=== PATIENT | female | born 1960 | race Caucasian/White ===

== ENCOUNTER 2017-03-04 10:02 | Day surgery (SDC) | END 2017-03-04 15:40 | disposition home or self-care (01) ==

== ENCOUNTER 2018-06-30 16:27 | Emergency (ER) | payer OTHER ==
[~2018-06-30] VITALS: Ht 162.6 cm; Wt 88.4 kg
[~2018-06-30 16:27] MED LIST: ASPI81TA52 PO; OMEP40CA6 PO
[2018-06-30 17:27] VITALS: BP 173/70; RESP 18; Ht 162.6 cm; Wt 88.4 kg
[2018-06-30] MEDS ORDERED: CITA20TA8 PO (20:38)
[2018-06-30] MEDS ORDERED: OMEP20CA16 PO (20:38)
[2018-06-30 20:45] VITALS: PULSE 88
--- NOTE | 2018-06-30 23:30 | ERD ---
ER Documentation Chief Complaint Chief Complaint epigastric pain x 1 week, vomiting last night HPI 34-year-old female complains of epigastric pain for 1 week. Says he vomited last night. Pain is mild to moderate intensity. No radiations. Mild nausea and vomiting. No diarrhea. No fevers or chills. No sick contacts. No history of abdominal trauma. No other current problems. ROS All systems reviewed and are negative except as per history of present illness. Medications Home Meds Reported Medications Citalopram Hydrobromide* (Citalopram Hydrobromide*) 20 Mg Tablet, 20 MG PO DAILY, #30 TAB 06/30/18 Omeprazole* (Omeprazole*) 20 Mg Capsule.dr, 20 MG PO DAILY, #30 CAP 06/30/18 Discontinued Reported Medications Aspirin (Low Dose Aspirin) 81 Mg Tablet.dr, 81 MG PO DAILY, #30 TAB 03/04/17 Omeprazole* (Omeprazole*) 40 Mg Capsule.dr, 40 MG PO DAILY, #30 CAP 03/04/17 Allergies Allergies: Coded Allergies: Penicillins (Verified Allergy, Unknown, HIVES, 06/30/18) PMhx/Soc Medical and Surgical Hx: pt denies Medical Hx, pt denies Surgical Hx History of Surgery: Yes Anesthesia Reaction: No Hx Neurological Disorder: No Hx Respiratory Disorders: No Hx Cardiac Disorders: No Hx Psychiatric Problems: No Hx Miscellaneous Medical Probl: No Hx Alcohol Use: Yes (OCC) Hx Substance Use: No Hx Tobacco Use: No Smoking Status: Never smoker Physical Exam Vitals Vital Signs Date Temp Pulse Resp B/P (MAP) Pulse Ox O2 O2 Flow FiO2 Time Delivery Rate 06/30/18 88 16 122/78 99 Room Air 20:45 (93) 06/30/18 98.3 18 173/70 95 17:27 (104) Physical Exam Const: No acute distress Head: Atraumatic Eyes: Normal Conjunctiva ENT: Normal External Ears, Nose and Mouth. Neck: Full range of motion. No meningismus. Resp: Clear to auscultation bilaterally Cardio: Regular rate and rhythm, no murmurs Abd: Soft, non tender, non distended. Normal bowel sounds Skin: No petechiae or rashes Back: No midline or flank tenderness Ext: No cyanosis, or edema Neur: Awake and alert Psych: Normal Mood and Affect Result Diagram: 06/30/18210106/30/182101 Results 24 hrs Laboratory Tests Test 06/30/18 21:00 06/30/18 21:02 Urine Color YELLOW Urine Clarity SLIGHTLY CLOUDY Urine pH 5.0 Urine Specific [place] 1.027 Urine Ketones NEGATIVE mg/dL Urine Nitrite NEGATIVE mg/dL Urine Bilirubin NEGATIVE mg/dL Urine Urobilinogen NEGATIVE mg/dL Urine Leukocyte Esterase TRACE David/ul Urine Microscopic RBC 3 /HPF Urine Microscopic WBC 3 /HPF Urine Squamous Epithelial Cells MODERATE /HPF Urine Calcium Oxalate Crystals FEW /HPF Urine Bacteria FEW /HPF Urine Mucus FEW /HPF Urine Hemoglobin NEGATIVE mg/dL Urine Glucose NEGATIVE mg/dL Urine Total Protein NEGATIVE mg/dl White Blood Count 16.9 10^3/ul Red Blood Count 6.00 10^6/ul Hemoglobin 11.3 g/dl Hematocrit 38.0 % Mean Corpuscular Volume 63.3 fl Mean Corpuscular Hemoglobin 18.8 pg Mean Corpuscular Hemoglobin Concent 29.7 g/dl Red Cell Distribution Width 17.1 % Platelet Count 632 10^3/UL Mean Platelet Volume 9.7 fl Immature Granulocytes % 0.400 % Neutrophils % % Segmented Neutrophils % (Manual) 45 % Lymphocytes % % Lymphocytes % (Manual) 49 % Reactive Lymphocytes % (Manual) 3 % Monocytes % % Monocytes % (Manual) 3 % Eosinophils % % Basophils % % Nucleated Red Blood Cells % 0.0 /100WBC Immature Granulocytes # 0.070 10^3/ul Neutrophils # 10^3/ul Lymphocytes (Manual) 8.2 10^3/ul Lymphocytes # 10^3/ul Reactive Lymphocytes # 0.5 10^3/ul Monocytes # 10^3/ul Monocytes # (Manual) 0.5 10^3/ul Eosinophils # 10^3/ul Basophils # 10^3/ul Nucleated Red Blood Cells # 10^3/ul Platelet Estimate INCREASED Poikilocytosis 2+ Anisocytosis 3+ Microcytosis 3+ Ovalocytes 2+ Sodium Level 142 mmol/L Potassium Level 4.5 mmol/L Chloride Level 104 mmol/L Carbon Dioxide Level 28 mmol/L Anion Gap 10 Blood Urea Nitrogen 12 mg/dl Creatinine 0.70 mg/dl Est Glomerular Filtrat Rate mL/min > 60 mL/min Glucose Level 100 mg/dl Calcium Level 9.7 mg/dl Total Bilirubin 0.4 mg/dl Direct Bilirubin 0.00 mg/dl Indirect Bilirubin 0.4 mg/dl Aspartate Amino Transf (AST/SGOT) 21 IU/L Alanine Aminotransferase (ALT/SGPT) 22 IU/L Alkaline Phosphatase 87 IU/L Troponin I < 0.012 ng/ml Total Protein 7.8 g/dl Albumin 4.2 g/dl Globulin 3.60 g/dl Albumin/Globulin Ratio 1.16 Lipase 147 U/L Procedures/MDM EKG: Rate/Rhythm: [Normal Sinus Rhythm] QRS, ST, T-waves: [No changes consistent w/ acute ischemia] Impression: [No evidence of ischemia or arrhythmia] Chest X-ray 1V Interpreted by me: Soft Tissue: No acute abnormalities Bones: No acute abnormalities Mediastinum/Cardiac Silhouette/Lungs: [No acute abnormalities] Medical decision making: This is a 4-year-old female with evidence of gastritis both on CT and on physical exam and history. At this point I feel she is clinically stable for trial of outpatient management as she has a serial negative abdominal exams here in the emergency department no evidence surgical abdomen. Patient's gastrointestinal symptoms have stabilized while in the department. No evidence of severe dehydration, sepsis, or surgical abdomen. Extensive discussion with family and patient that occult disease cannot be ruled out. 8 hour recheck for repeat abdominal exam is planned. Departure Diagnosis: Primary Impression: Epigastric pain Condition: Stable MICHAEL ROBLES June 30, 2018 23:30
[2018-06-30] MEDS ORDERED: SUCR1TAB56 PO (23:31)
[2018-06-30] MEDS ORDERED: ONDA4TAB14 PO (23:31)
--- NOTE | 2018-07-04 15:07 | RADRPT ---
Vent Rate: 86 bpm RR Interval: 0 msec UT Interval: 146 msec QRS Duration: 80 msec QT Interval: 352 msec QTC Interval: 421 msec P-R-T [place]: 51 - 12 - 56 degrees Normal sinus rhythm Nonspecific T wave abnormality Abnormal ECG Electronically Signed By: [facility]
== END 2018-06-30 23:45 | disposition home or self-care (01) ==
LOC: E/R 16:27
DX: R10.13 Epigastric pain (principal)
CPT/HCPCS: 36415; 71045; 74176; 80053; 81001; 83690; 84484; 85025; 93005; Z7502

== ENCOUNTER 2018-09-13 16:01 | Emergency (ER) | payer OTHER ==
[~2018-09-13] VITALS: Ht 162.6 cm; Wt 90.0 kg
[~2018-09-13 16:01] MED LIST changes: -ASPI81TA52 PO; +BENZ1LOZ49 MM; +CITA20TA8 PO; +FLUT9.9S NASAL; +MAG355OR14 PO; +OMEP20CA16 PO; -OMEP40CA6 PO; +ONDA4TAB14 PO; +SUCR1TAB56 PO
[2018-09-13 16:09] VITALS: Ht 162.6 cm; Wt 90.0 kg
--- NOTE | 2018-09-13 18:10 | ERD ---
ER Documentation Chief Complaint Chief Complaint cough x 2 weeks, sob, bilateral leg swelling x 2 days HPI Patient has a history of episodic vomiting with no clear diagnosis is seeing a specialist this week for it. Patient is presenting today with bilateral lower extremity edema for the past 2 days. Endorses mild shortness of breath. But nothing exertional. No chest pain. Denies any history of lower extremity edema. Does endorse some mild decrease in urine output over the past day as well. No fever no chills no dysuria. No history of kidney or cardiac history. ROS All systems reviewed and are negative except as per history of present illness. Medications Home Meds Active Scripts Fluticasone Propionate (Flonase Allergy Relief) 9.9 Ml [place].susp, 1 SPRAY NASAL BID for 30 Days, #1 BOTTLE TO EACH NOSTRIL Prov:AMRIT CROWELL NP 09/09/18 Benzocaine/Menthol* (Chloraseptic* Max Lozenge) 1 Each Lozenge, 1 LOZENGE MM Q3H PRN for SORE THROAT for 10 Days, #30 LOZENGE Prov:AMRIT CROWELL NP 09/09/18 Mag Hydrox/Al Hydrox/Simeth (Maalox Advanced Suspension) 355 Ml Oral.susp, 10 ML PO TID for dyspepsia for 10 Days, #300 ML Prov:AMRIT CROWELL NP 09/09/18 Ondansetron (Ondansetron Odt) 4 Mg Tab.rapdis, 4 MG PO Q6H PRN for NAUSEA AND/OR VOMITING, #10 TAB Prov:MICHAEL ROBLES 06/30/18 Sucralfate* (Carafate*) 1 Gm Tab, 1 GM PO QID, #60 TAB Prov:MICHAEL ROBLES 06/30/18 Reported Medications Citalopram Hydrobromide* (Citalopram Hydrobromide*) 20 Mg Tablet, 20 MG PO DAILY, #30 TAB 06/30/18 Omeprazole* (Omeprazole*) 20 Mg Capsule.dr, 20 MG PO DAILY, #30 CAP 06/30/18 Allergies Allergies: Coded Allergies: Penicillins (Verified Allergy, Unknown, HIVES, 06/30/18) PMhx/Soc History of Surgery: No Anesthesia Reaction: No Hx Neurological Disorder: No Hx Respiratory Disorders: No Hx Cardiac Disorders: No Hx Psychiatric Problems: No Hx Miscellaneous Medical Probl: No Hx Alcohol Use: Yes (OCC) Hx Substance Use: No Hx Tobacco Use: No Physical Exam Vitals Vital Signs Date Temp Pulse Resp B/P (MAP) Pulse Ox O2 O2 Flow FiO2 Time Delivery Rate 09/13/18 71 17 116/82 97 Room Air 18:30 (93) 09/13/18 99.5 90 20 128/65 98 16:09 (86) Physical Exam Const: No acute distress Head: Atraumatic Eyes: Normal Conjunctiva ENT: Normal External Ears, Nose and Mouth. Neck: Full range of motion. No meningismus. Resp: Clear to auscultation bilaterally Cardio: Regular rate and rhythm, no murmurs Abd: Soft, non tender, non distended. Normal bowel sounds Skin: No petechiae or rashes Back: No midline or flank tenderness Ext: No cyanosis, or mild bilateral lower extremity edema Neur: Awake and alert Psych: Normal Mood and Affect Result Diagram: 09/13/18 1806 09/13/18 1806 Results 24 hrs Laboratory Tests Test 09/13/18 18:06 White Blood Count 9.6 10^3/ul Red Blood Count 5.55 10^6/ul Hemoglobin 10.5 g/dl Hematocrit 34.7 % Mean Corpuscular Volume 62.5 fl Mean Corpuscular Hemoglobin 18.9 pg Mean Corpuscular Hemoglobin Concent 30.3 g/dl Red Cell Distribution Width 15.9 % Platelet Count 496 10^3/UL Mean Platelet Volume 9.7 fl Immature Granulocytes % 0.300 % Neutrophils % 56.8 % Lymphocytes % 33.0 % Monocytes % 7.2 % Eosinophils % 2.4 % Basophils % 0.3 % Nucleated Red Blood Cells % 0.0 /100WBC Immature Granulocytes # 0.030 10^3/ul Neutrophils # 5.5 10^3/ul Lymphocytes # 3.2 10^3/ul Monocytes # 0.7 10^3/ul Eosinophils # 0.2 10^3/ul Basophils # 0.0 10^3/ul Nucleated Red Blood Cells # 0.0 10^3/ul Urine Color YELLOW Urine Clarity CLEAR Urine pH 8.0 Urine Specific [place] 1.016 Urine Ketones NEGATIVE mg/dL Urine Nitrite NEGATIVE mg/dL Urine Bilirubin NEGATIVE mg/dL Urine Urobilinogen NEGATIVE mg/dL Urine Leukocyte Esterase TRACE David/ul Urine Microscopic RBC 0 /HPF Urine Microscopic WBC 2 /HPF Urine Squamous Epithelial Cells FEW /HPF Urine Bacteria FEW /HPF Urine Mucus FEW /HPF Urine Hemoglobin NEGATIVE mg/dL Urine Glucose NEGATIVE mg/dL Urine Total Protein NEGATIVE mg/dl Sodium Level 142 mmol/L Potassium Level 3.7 mmol/L Chloride Level 103 mmol/L Carbon Dioxide Level 29 mmol/L Anion Gap 10 Blood Urea Nitrogen 9 mg/dl Creatinine 0.73 mg/dl Est Glomerular Filtrat Rate mL/min > 60 mL/min Glucose Level 101 mg/dl Calcium Level 9.3 mg/dl Total Bilirubin 0.4 mg/dl Direct Bilirubin 0.00 mg/dl Indirect Bilirubin 0.4 mg/dl Aspartate Amino Transf (AST/SGOT) 24 IU/L Alanine Aminotransferase (ALT/SGPT) 22 IU/L Alkaline Phosphatase 71 IU/L B-Type Natriuretic Peptide 12 PG/ML Total Protein 8.1 g/dl Albumin 4.3 g/dl Globulin 3.80 g/dl Albumin/Globulin Ratio 1.13 Lipase 94 U/L Procedures/MDM Patient presenting for bilateral lower extremity edema for the past 2 to 3 days in the setting of vomiting for the past several months. Vomiting is not daily. Patient is well-appearing and is p.o. tolerant today. With normal abdominal exam. Labs do not show any indication of CHF, ONELIA, hypo albumin. Patient is sa tting well on room air. Will discharge patient follow-up this Saturday with primary care doctor for further testing. Strict return precautions were given. Departure Diagnosis: Primary Impression: Bilateral lower extremity edema Condition: Stable ELIANA GEORGES MD Sep 13, 2018 18:10
[2018-09-13 19:20] VITALS: BP 115/80; PULSE 71; RESP 16
== END 2018-09-13 19:25 | disposition home or self-care (01) ==
LOC: E/R 16:01
DX: R60.0 Localized edema (principal)
CPT/HCPCS: 80053; 81001; 83690; 83880; 85025; Z7502; 99283